=== PATIENT | male | born 1975 | race Caucasian/White ===

== ENCOUNTER 2018-05-12 08:28 | Outpatient (CLI) | payer MEDICAID ==
[2018-05-12 11:21] LABS: BUN - BLOOD UREA NITROGEN 18 mg/dL (6-20); CHOL/HDL RATIO 3.5 (<5.0); CHOLESTEROL 178 mg/dL; GFR - MDRD 83 (>89); GLUCOSE 98 mg/dL (70-100); HDL CHOLESTEROL 51 mg/dL; LDL CHOLESTEROL,CALCULATED 110 mg/dL; LDL/HDL RATIO 2.2 (<3.6); VLDL CHOLESTEROL 17 mg/dL
[2018-05-12 13:08] LABS: CALCIUM 9.3 mg/dL (8.5-10.3); CARBON DIOXIDE - CO2 25 mmol/L (21-32); CHLORIDE 104 mmol/L (101-111); SODIUM 136 mmol/L (135-145)
== END 2018-05-12 08:29 | disposition home or self-care (01) ==
LOC: LAB.F 08:28
PROVIDERS: ATTEND Internal Medicine
DX: Z00.00 Encounter for general adult medical examination without abnormal findings (principal); N13.9 Obstructive and reflux uropathy, unspecified
CPT/HCPCS: 36415; 80048; 80061; 83721; 84153

== ENCOUNTER 2018-05-18 20:38 | Emergency (ER) | payer MEDICAID ==
--- NOTE | 2018-05-18 21:31 | ED Physician Documentation ---
PD HPI ABD PAIN - Stated complaint Stated Complaint: ADB PX/FEVER - Chief complaint Chief Complaint: Abd Pain - History obtained from History obtained from: Patient - History of Present Illness Timing - onset: Last night Timing - details: Gradual onset, Intermittant, Waxing and waning Quality: Cramping, Pain Location: Periumbilical, LLQ Radiation: Other (no radiation) Improved by: Other (nothing) Worsened by: Other (no exacerbating factors) Associated symptoms: Fever (Tmax 102 (earlier today)), Diarrhea. No: Nausea, Vomiting, Dysuria Similar symptoms before: Has not had sx before Recently seen: Not recently seen Review of Systems Constitutional: reports: Fever. denies: Myalgias Cardiac: reports: Reviewed and negative Respiratory: reports: Reviewed and negative GI: reports: Abdominal Pain, Diarrhea. denies: Abdominal Swelling, Nausea, Vomiting : denies: Dysuria, Frequency Skin: reports: Reviewed and negative Musculoskeletal: reports: Reviewed and negative PD PAST MEDICAL HISTORY - Past Medical History Past Medical History: No - Past Surgical History Past Surgical History: No - Present Medications Home Medications: Ambulatory Orders Medication Instructions Recorded Confirmed Ciprofloxacin HCl [Cipro] 500 mg PO BID #14 tablet 05/19/18 Hydrocodone/Acetaminophen 1 - 2 each PO Q6H PRN #14 tablet 05/19/18 [Hydrocodon-Acetaminophen 5-325] Metronidazole [Flagyl] 500 mg PO TID #21 tablet 05/19/18 - Allergies Allergies/Adverse Reactions: Allergies Allergy/AdvReac Type Severity Reaction Status Date / Time No Known Drug Allergies Allergy Verified 05/18/18 20:42 - Social History Does the pt smoke?: No Smoking Status: Never smoker Does the pt drink ETOH?: Yes ETOH Use: Beer Substance Use and Type: Marijuana PD ED PE NORMAL - Vitals Vital signs reviewed: Yes - General General: Alert and oriented X 3, No acute distress, Well developed/nourished - HEENT HEENT: Moist mucous membranes - Neck Neck: Supple, no meningeal sign - Cardiac Cardiac: RRR, No murmur - Respiratory Respiratory: No respiratory distress, Clear bilaterally - Abdomen Abdomen: Soft, Non distended, Other (LLQ tenderness without rebound or guarding) - Back Back: No CVA TTP - Derm Derm: Normal color, Warm and dry, No rash - Extremities Extremities: No edema Results - Vitals Vitals: Vital Signs - 24 hr 03/10/19 03/10/19 03/11/19 20:42 23:22 01:47 Temperature 37.2 C Heart Rate 93 83 92 Respiratory 16 18 16 Rate Blood Pressure 146/88 H 151/89 H 139/99 H O2 Saturation 96 97 97 Oxygen O2 Source Room air - Labs Labs: Microbiology 05/18/18 23:40 Campylobacter Antigen Assay - Final Stool No growth Laboratory Tests 05/18/18 05/18/18 05/19/18 22:00 22:18 01:34 WBC 6.7 RBC 4.94 Hgb 16.0 Hct 45.9 MCV 92.9 MCH 32.3 H MCHC 34.8 RDW 12.5 Plt Count 161 MPV 7.3 L Neut # (Auto) 5.1 Lymph # (Auto) 0.9 L [place] # (Auto) 0.7 Eos # (Auto) 0.0 Baso # (Auto) 0.0 Absolute Nucleated RBC 0.00 Nucleated RBC % 0.0 Sodium 135 Potassium 3.6 Chloride 98 L Carbon Dioxide 24 Anion Gap 13.0 BUN 18 Creatinine 1.3 H Estimated GFR (MDRD) 61 L Glucose 109 H Calcium 9.2 Total Bilirubin 0.9 AST 20 ALT 18 Alkaline Phosphatase 47 Total Protein 7.2 Albumin 3.7 Globulin 3.5 Albumin/Globulin Ratio 1.1 Lipase 39 C. difficile Tox B Gene NEGATIVE - Rads (name of study) CT A/P Radiology: Prelim report reviewed, See rad report PD MEDICAL DECISION MAKING - ED course Complexity details: reviewed results, re-evaluated patient, considered differential, d/w patient Departure - Departure Disposition: 01 Home, Self Care Clinical Impression: Colitis Condition: Good Instructions: ED Gastroenteritis Non Infec Follow-Up: Mukund Mahan MD [Primary Care Provider] - (2-3 days) Prescriptions: Ciprofloxacin HCl [Cipro] 500 mg PO BID #14 tablet Hydrocodone/Acetaminophen [Hydrocodon-Acetaminophen 5-325] 1 - 2 each PO Q6H PRN #14 tablet PRN Reason: pain Metronidazole [Flagyl] 500 mg PO TID #21 tablet Discharge Date/Time: 05/19/18 02:00
[2018-05-18] MEDS ORDERED: SODIUM CHLORIDE 0.9% 1,000 ML IV STA (21:50)
[2018-05-18 22:22] LABS: BASOPHILS % (AUTO) 0.3 %; EOSINOPHILS % (AUTO) 0.1 %; LYMPHOCYTES # (AUTO) 0.9 10^3/uL (1.5-3.5); LYMPHOCYTES % (AUTO) 13.7 %; MEAN CORPUSCULAR HEMOGLOBIN 32.3 pg (27.0-31.0); MEAN CORPUSCULAR HGB CONC 34.8 g/dL (32.0-36.0); MEAN CORPUSCULAR VOLUME 92.9 fL (80.0-94.0); MEAN PLATELET VOLUME 7.3 fL (7.4-11.4); MONOCYTES # (AUTO) 0.7 10^3/uL (0.0-1.0); MONOCYTES % (AUTO) 9.8 %; NEUTROPHILS # (AUTO) 5.1 10^3/uL (1.5-6.6); NEUTROPHILS % (AUTO) 76.1 %; PLT - PLATELET COUNT 161 10^3/uL (130-450); RED BLOOD COUNT 4.94 10^6/uL (4.70-6.10); RED CELL DISTRIBUTION WIDTH 12.5 % (12.0-15.0); WHITE BLOOD COUNT 6.7 x10^3/uL (4.8-10.8)
[2018-05-18] MEDS ORDERED: IOPAMIDOL-300 100 ML VIAL ONE (22:25)
[2018-05-18 22:30] LABS: ALBUMIN 3.7 g/dL (3.2-5.5); ALBUMIN/GLOBULIN RATIO 1.1 (1.0-2.2); BILIRUBIN,TOTAL 0.9 mg/dL (0.2-1.0); CALCIUM 9.2 mg/dL (8.5-10.3); CREATININE 1.3 mg/dL (0.6-1.2); TOTAL PROTEIN 7.2 g/dL (6.7-8.2)
[2018-05-18] MEDS ORDERED: IOPAMIDOL-300 100 ML VIAL IVP ONE (23:23)
--- NOTE | 2018-05-18 23:32 | CT Report ---
Reason: LLQ pain, fever Procedure Date: 05/18/2018 Accession Number: [id number] / [id number] Procedure: CT - Abdomen/Pelvis W CPT Code: FULL RESULT: EXAM: CT ABDOMEN AND PELVIS EXAM DATE: 05/18/2018 11:22 PM. CLINICAL HISTORY: LLQ pain, fever. COMPARISONS: None. TECHNIQUE: Routine helical CT imaging was performed through the abdomen and pelvis. IV contrast: 100 ML ISOVUE 300. Enteric contrast: No. Reconstructions: Coronal and sagittal. In accordance with CT protocol optimization, one or more of the following dose reduction techniques were utilized for this exam: automated exposure control, adjustment of mA and/or KV based on patient size, or use of iterative reconstructive technique. FINDINGS: Lung Bases: Unremarkable. Liver: Normal. No masses. Gallbladder/Bile Ducts: Unremarkable. Spleen: Normal. Pancreas: Normal. Adrenal Glands: Normal. Kidneys: Normal. No masses or hydronephrosis. Peritoneal Cavity/Bowel: There is wall thickening of the transverse, descending, and sigmoid colon, compatible with colitis. No small bowel dilatation, free gas, or free fluid. No abdominal adenopathy. The appendix is well visualized and normal. Pelvic Organs: Normal. The bladder and visualized pelvic organs are within normal limits. Vasculature: No aneurysms or other significant abnormality. Specifically, the superior mesenteric and inferior mesenteric arteries are patent. Bones: No significant abnormality. Other: None. IMPRESSION: Contiguous long segment colonic wall thickening, involving the transverse, descending, and sigmoid colon, suggestive of colitis. Normal appendix. No small bowel obstruction or perforation. RADIA
[2018-05-19] MEDS ORDERED: MORPHINE 2 MG/ML CARPUJECT IVP STA (01:31)
[2018-05-19] MEDS ORDERED: CIPROFLOXACIN 250 MG TABLET PO STA (01:31)
[2018-05-19] MEDS ORDERED: HYDROcod/ACET 5/325 Prepack 4 PO STA (01:31)
[2018-05-19] MEDS ORDERED: metroNIDAZOLE 250 MG TABLET PO STA (01:32)
[2018-05-19 01:48] VITALS: BP 139/99
== END 2018-05-19 02:00 | disposition home or self-care (01) ==
LOC: ED 20:38
DX: K52.9 Noninfective gastroenteritis and colitis, unspecified (principal)
CPT/HCPCS: 36415; 74177; 80053; 83690; 85025; 87045; 87046; 87493; 96361; 96374; 99283; A9270; Q9967

== ENCOUNTER 2018-10-24 15:51 | Outpatient (CLI) | payer MEDICAID | END 2018-10-24 15:52 | disposition EMS.NT | LOC: EMS 15:51 | PROVIDERS: ATTEND Surgery | DX: Z03.89 Encounter for observation for other suspected diseases and conditions ruled out (principal) ==

== ENCOUNTER 2019-01-30 16:43 | Emergency (ER) | payer MEDICAID, OTHER ==
[2019-01-30 17:24] LABS: BASOPHILS % (AUTO) 0.2 %; EOSINOPHILS % (AUTO) 0.2 %; HGB - HEMOGLOBIN 16.9 g/dL (14.0-18.0); LYMPHOCYTES # (AUTO) 1.2 10^3/uL (1.5-3.5); LYMPHOCYTES % (AUTO) 14.5 %; MEAN CORPUSCULAR HEMOGLOBIN 30.3 pg (27.0-31.0); MEAN CORPUSCULAR HGB CONC 33.7 g/dL (32.0-36.0); MEAN CORPUSCULAR VOLUME 89.8 fL (80.0-94.0); MEAN PLATELET VOLUME 9.1 fL (7.4-11.4); MONOCYTES # (AUTO) 0.6 10^3/uL (0.0-1.0); MONOCYTES % (AUTO) 7.6 %; NEUTROPHILS # (AUTO) 6.4 10^3/uL (1.5-6.6); PLT - PLATELET COUNT 266 10^3/uL (130-450); RED BLOOD COUNT 5.58 10^6/uL (4.70-6.10); RED CELL DISTRIBUTION WIDTH 12.8 % (12.0-15.0); WHITE BLOOD COUNT 8.3 x10^3/uL (4.8-10.8)
[2019-01-30 17:33] LABS: ALBUMIN 4.7 g/dL (3.2-5.5); ALBUMIN/GLOBULIN RATIO 1.3 (1.0-2.2); BILIRUBIN,TOTAL 1.8 mg/dL (0.2-1.0); CALCIUM 8.9 mg/dL (8.5-10.3); TOTAL PROTEIN 8.2 g/dL (6.7-8.2)
--- NOTE | 2019-01-30 17:48 | XRAY Report ---
Reason: chest pain Procedure Date: 01/30/2019 Accession Number: [id number] / [id number] Procedure: XR - Chest 1 View X-Ray CPT Code: 54742 Final Report FULL RESULT: EXAM: CHEST RADIOGRAPHY EXAM DATE: 01/30/2019 05:17 PM. CLINICAL HISTORY: Chest pain. COMPARISON: None. TECHNIQUE: 1 view. FINDINGS: Lungs/Pleura: No focal opacities evident. No pleural effusion. No pneumothorax. Mediastinum: Within exam limitations, the cardiomediastinal contour is normal. Other: None. IMPRESSION: Normal single view chest. RADIA
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
[2019-01-30] MEDS ORDERED: ONDANSETRON ODT 4 MG TABLET TL STA (19:22)
[2019-01-30] MEDS ORDERED: FAMOTIDINE 20 MG/2 ML VIAL IVP STA (19:22)
[2019-01-30] MEDS ORDERED: MAG HYDROX/AL HYDROX/SIMETH 30 ML UDC PO STA (19:22)
[2019-01-30] MEDS ORDERED: FAMOTIDINE 20 MG TABLET PO STA (19:28)
[2019-01-30 20:37] VITALS: BP 137/93
== END 2019-01-30 20:46 | disposition home or self-care (01) ==
LOC: ED 16:43
DX: R07.89 Other chest pain (principal); R10.13 Epigastric pain; R11.2 Nausea with vomiting, unspecified
CPT/HCPCS: 36415; 71045; 80053; 83690; 84484; 85025; 93005; 99284; A9270; Q0162

== ENCOUNTER 2019-10-04 05:23 | Emergency (ER) | payer SELFPAY ==
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
[2019-10-04] MEDS ORDERED: MORPHINE 2 MG/ML CARPUJECT IM STA (06:03)
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
[2019-10-04 09:07] VITALS: BP 133/97
[2019-10-04] MEDS ORDERED: AMOX/CLAV 875 MG/125 MG TABLET PO STA (09:23)
[2019-10-04] MEDS ORDERED: oxyCODONE 5 MG TABLET PO STA (09:24)
== END 2019-10-04 10:43 | disposition home or self-care (01) ==
LOC: ED 05:23
DX: S02.842A Fracture of lateral orbital wall, left side, initial encounter for closed fracture (principal); S02.32XA Fracture of orbital floor, left side, initial encounter for closed fracture; S02.40FA Zygomatic fracture, left side, initial encounter for closed fracture; S02.40DA Maxillary fracture, left side, initial encounter for closed fracture; S06.0X1A Concussion with loss of consciousness of 30 minutes or less, initial encounter; S60.141A Contusion of right ring finger with damage to nail, initial encounter; S60.416A Abrasion of right little finger, initial encounter; S00.83XA Contusion of other part of head, initial encounter; S00.81XA Abrasion of other part of head, initial encounter; S50.812A Abrasion of left forearm, initial encounter; S80.02XA Contusion of left knee, initial encounter; S80.01XA Contusion of right knee, initial encounter; V18.0XXA Pedal cycle driver injured in noncollision transport accident in nontraffic accident, initial encounter; Y93.55 Activity, bike riding
CPT/HCPCS: 70450; 70486; 71046; 72125; 99284; A9270

== ENCOUNTER 2020-02-03 15:03 | Outpatient (CLI) | payer OTHER | END 2020-02-03 15:04 | disposition home or self-care (01) | LOC: COV 15:03 | PROVIDERS: ATTEND Family Medicine | DX: Z20.828 Contact with and (suspected) exposure to other viral communicable diseases (principal) ==

== ENCOUNTER 2020-11-21 08:00 | Outpatient (CLI) | payer BC, OTHER ==
[2020-11-24 11:41] LABS: NIL 0.03 IU/mL; TB1-NIL 0.03 IU/mL; TB2-NIL 0.06 IU/mL
== END 2020-11-21 23:59 | disposition home or self-care (01) ==
LOC: LAB.S 08:00
PROVIDERS: ATTEND Physician Assistant Medical
DX: Z11.1 Encounter for screening for respiratory tuberculosis (principal)
CPT/HCPCS: 86480

== ENCOUNTER 2020-12-06 08:00 | Outpatient (CLI) | payer BC ==
[2020-12-06 14:52] LABS: BASOPHILS # (AUTO) 0.1 10^3/uL (0.0-0.1); BASOPHILS % (AUTO) 0.8 %; EOSINOPHILS # (AUTO) 0.2 10^3/uL (0.0-0.7); EOSINOPHILS % (AUTO) 2.8 %; HCT - HEMATOCRIT 47.3 % (42.0-52.0); HGB - HEMOGLOBIN 15.9 g/dL (14.0-18.0); LYMPHOCYTES # (AUTO) 2.4 10^3/uL (1.5-3.5); LYMPHOCYTES % (AUTO) 39.1 %; MEAN CORPUSCULAR HEMOGLOBIN 31.7 pg (27.0-31.0); MEAN CORPUSCULAR HGB CONC 33.6 g/dL (32.0-36.0); MEAN CORPUSCULAR VOLUME 94.2 fL (80.0-94.0); MEAN PLATELET VOLUME 9.4 fL (7.4-11.4); MONOCYTES # (AUTO) 0.5 10^3/uL (0.0-1.0); MONOCYTES % (AUTO) 8.3 %; NEUTROPHILS # (AUTO) 2.9 10^3/uL (1.5-6.6); NEUTROPHILS % (AUTO) 48.5 %; PLT - PLATELET COUNT 230 10^3/uL (130-450); RED BLOOD COUNT 5.02 10^6/uL (4.70-6.10); RED CELL DISTRIBUTION WIDTH 12.4 % (12.0-15.0); WHITE BLOOD COUNT 6.1 x10^3/uL (4.8-10.8)
[2020-12-06 15:19] LABS: ALBUMIN/GLOBULIN RATIO 1.2 (1.0-2.2); BILIRUBIN,TOTAL 0.6 mg/dL (0.2-1.0); CALCIUM 8.9 mg/dL (8.5-10.3); POTASSIUM 3.9 mmol/L (3.5-5.0); TOTAL PROTEIN 7.3 g/dL (6.7-8.2)
== END 2020-12-06 23:59 | disposition home or self-care (01) ==
LOC: LAB.S 08:00
PROVIDERS: ATTEND Nurse Practitioner
DX: R42 Dizziness and giddiness (principal)
CPT/HCPCS: 36415; 80053; 85025

== ENCOUNTER 2022-06-11 07:04 | Outpatient (CLI) | payer MEDICAID ==
[2022-06-11 14:39] LABS: BASOPHILS % (AUTO) 0.6 %; EOSINOPHILS # (AUTO) 0.2 10^3/uL (0.0-0.7); EOSINOPHILS % (AUTO) 2.5 %; HCT - HEMATOCRIT 50.9 % (42.0-52.0); HGB - HEMOGLOBIN 16.8 g/dL (14.0-18.0); LYMPHOCYTES # (AUTO) 2.4 10^3/uL (1.5-3.5); LYMPHOCYTES % (AUTO) 37.8 %; MEAN CORPUSCULAR HEMOGLOBIN 31.2 pg (27.0-31.0); MEAN CORPUSCULAR VOLUME 94.4 fL (80.0-94.0); MEAN PLATELET VOLUME 9.1 fL (7.4-11.4); MONOCYTES # (AUTO) 0.7 10^3/uL (0.0-1.0); MONOCYTES % (AUTO) 10.5 %; NEUTROPHILS # (AUTO) 3.1 10^3/uL (1.5-6.6); NEUTROPHILS % (AUTO) 48.4 %; PLT - PLATELET COUNT 229 10^3/uL (130-450); RED BLOOD COUNT 5.39 10^6/uL (4.70-6.10); WHITE BLOOD COUNT 6.4 x10^3/uL (4.8-10.8)
[2022-06-11 15:40] LABS: ALBUMIN 3.8 g/dL (3.2-5.5); ALBUMIN/GLOBULIN RATIO 1.1 (1.0-2.2); ALKALINE PHOSPHATASE 48 IU/L (42-121); ALT ALANINE AMINOTRANSFERASE 31 IU/L (10-60); AST ASPARTATE AMINOTRANSFERASE 35 IU/L (10-42); BILIRUBIN,TOTAL 0.9 mg/dL (0.2-1.0); BUN - BLOOD UREA NITROGEN 14 mg/dL (6-20); CALCIUM 8.8 mg/dL (8.5-10.3); CARBON DIOXIDE - CO2 29 mmol/L (21-32); CHLORIDE 105 mmol/L (101-111); CHOL/HDL RATIO 3.6 (<5.0); CHOLESTEROL 200 mg/dL; CREATININE 0.9 mg/dL (0.6-1.2); GFR - MDRD 92 (>89); GLUCOSE 103 mg/dL (70-100); HDL CHOLESTEROL 56 mg/dL; LDL CHOLESTEROL,CALCULATED 128 mg/dL; LDL/HDL RATIO 2.3 (<3.6); SODIUM 136 mmol/L (135-145); TOTAL PROTEIN 7.3 g/dL (6.7-8.2); TRIGLYCERIDES 78 mg/dL; URIC ACID 6.7 mg/dL (2.6-7.2); VLDL CHOLESTEROL 16 mg/dL
[2022-06-11 15:42] LABS: THYROID STIMULATING HORMONE 3.4 uIU/mL (0.34-5.60)
== END 2022-06-11 07:05 | disposition home or self-care (01) ==
LOC: LAB.S 07:04
PROVIDERS: ATTEND Internal Medicine
DX: I10 Essential (primary) hypertension (principal); R61 Generalized hyperhidrosis
CPT/HCPCS: 36415; 80050; 80061; 81001; 83721; 84550; 87086

== ENCOUNTER 2022-06-23 19:01 | Emergency (ER) | payer MEDICAID ==
[2022-06-23 19:23] VITALS: BP 176/108
--- NOTE | 2022-06-23 19:31 | ED Physician Documentation ---
History of Present Illness - Stated complaint Stated Complaint: EXPOSURE TO STREP - Chief complaint Chief Complaint: General - History obtained from History obtained from: Patient (His tested positive for strep today. He has no symptoms but was encouraged by his to be seen by physician.) PD PAST MEDICAL HISTORY - Past Medical History Cardiovascular: Other - Past Surgical History Past Surgical History: No - Present Medications Home Medications: Ambulatory Orders Medication Instructions Recorded Confirmed Ciprofloxacin HCl [Cipro] 500 mg PO BID #14 tablet 05/19/18 Hydrocodone/Acetaminophen 1 - 2 each PO Q6H PRN #14 tablet 05/19/18 [Hydrocodon-Acetaminophen 5-325] metroNIDAZOLE [Flagyl] 500 mg PO TID #21 tablet 05/19/18 Famotidine [Acid Controller] 20 mg PO DAILY #14 tablet 01/30/19 Ondansetron Odt [Zofran] 4 mg TL Q6H PRN #10 tablet 01/30/19 Amox/Clav 875/125 [Augmentin] 1 each PO Q12H #13 tablet 10/04/19 oxyCODONE [Roxicodone] 5 - 10 mg PO Q6H PRN #20 tablet 10/04/19 - Allergies Allergies/Adverse Reactions: Allergies Allergy/AdvReac Type Severity Reaction Status Date / Time No Known Drug Allergies Allergy Verified 06/23/22 19:23 - Social History Does the pt smoke?: No Smoking Status: Never smoker Does the pt drink ETOH?: Yes Does the pt have substance abuse?: No - Immunizations Immunizations are current?: Yes - POLST Patient has POLST: No PD ED PE NORMAL - Vitals Vital signs reviewed: Yes - General General: Alert and oriented X 3, No acute distress - HEENT HEENT: Pharynx benign - Cardiac Cardiac: RRR, No murmur Results - Vitals Vitals: Vital Signs - 24 hr 06/23/22 19:20 Temperature 36.7 C Heart Rate 97 Respiratory 18 Rate Blood Pressure 176/108 H O2 Saturation 95 Oxygen O2 Source Room air Departure - Departure Disposition: 01 Home, Self Care Clinical Impression: Streptococcus exposure Condition: Good Record reviewed to determine appropriate education?: Yes Comments: Return if you develop fever, sore throat, or other symptoms of acute illness. Your blood pressure was elevated today on check into the emergency department. This does not mean that you have hypertension, it is a common phenomenon to come to the emergency department and have elevated blood pressure. I recommend that you see your primary care physician within the week to have it rechecked when you are feeling better.
== END 2022-06-23 19:39 | disposition home or self-care (01) ==
LOC: ED 19:01
DX: Z20.89 Contact with and (suspected) exposure to other communicable diseases (principal)
CPT/HCPCS: 99281; 99282

== ENCOUNTER 2023-08-06 21:08 | Emergency (ER) | payer MEDICAID, OTHER ==
--- NOTE | 2023-08-06 23:04 | ED Physician Documentation ---
PD HPI HEENT - Stated complaint Stated Complaint: TOOTH PX - Chief complaint Chief Complaint: Heent - History obtained from History obtained from: Patient - Additional information Additional information: HPI from patient. Patient c/o dental pain x few days. The pain is left upper teeth but not focal to any one tooth. The pain is constant and steadily worsening since onset. There was no inciting event. Denies fever. Pain is exacerbated with chewing. No ameliorating factors. PD PAST MEDICAL HISTORY - Past Medical History Cardiovascular: Other - Past Surgical History Past Surgical History: No - Present Medications Home Medications: Ambulatory Orders Medication Instructions Recorded Confirmed Ciprofloxacin HCl [Cipro] 500 mg PO BID #14 tablet 05/19/18 Hydrocodone/Acetaminophen 1 - 2 each PO Q6H PRN #14 tablet 05/19/18 [Hydrocodon-Acetaminophen 5-325] metroNIDAZOLE [Flagyl] 500 mg PO TID #21 tablet 05/19/18 Famotidine [Acid Controller] 20 mg PO DAILY #14 tablet 01/30/19 Ondansetron Odt [Zofran] 4 mg TL Q6H PRN #10 tablet 01/30/19 Amox/Clav 875/125 [Augmentin] 1 each PO Q12H #13 tablet 10/04/19 oxyCODONE [Roxicodone] 5 - 10 mg PO Q6H PRN #20 tablet 10/04/19 Amox/Clav 875/125 [Augmentin 1 tablet PO Q12H 10 Days #14 tablet 08/06/23 875/125 Tab] Oxycodone HCl/Acetaminophen 1 - 2 each PO Q6H PRN #14 tablet 08/06/23 [Percocet 5-325 mg Tablet] - Allergies Allergies/Adverse Reactions: Allergies Allergy/AdvReac Type Severity Reaction Status Date / Time No Known Drug Allergies Allergy Verified 08/06/23 21:22 - Social History Does the pt smoke?: No Smoking Status: Never smoker Does the pt drink ETOH?: Yes Does the pt have substance abuse?: No - Immunizations Immunizations are current?: Yes - POLST Patient has POLST: No PD ED PE NORMAL - Vitals Vital signs reviewed: Yes - General General: Alert and oriented X 3, No acute distress, Well developed/nourished - HEENT HEENT: Moist mucous membranes PD ED PE EXPANDED - HEENT HEENT: Other (extensive generalized dental decay and attrition. Left maxillary gingiva (buccal aspect) has mild swelling, erythema but no fluctuance nor visible focus to suggest abscess. symmetric facies) Results - Vitals Vitals: Vital Signs - 24 hr 08/06/23 08/06/23 21:18 23:54 Temperature 36.5 C Heart Rate 54 L 58 L Respiratory 16 16 Rate Blood Pressure 142/99 H 139/100 H O2 Saturation 98 99 Oxygen O2 Source Room air PD Medical Decision Making - ED course Complexity details: considered differential, d/w patient ED course: Given augmentin 875mg PO in ED as well as 5mg PO oxycodone, provided rx for both of these medications. Return precautions reviewed, advised to continue to pursue follow up with dentist Departure - Departure Disposition: 01 Home, Self Care Clinical Impression: Pain, dental Condition: Good Instructions: ED Tooth Pain Prescriptions: Amox/Clav 875/125 [Augmentin 875/125 Tab] 1 tablet PO Q12H 10 Days #14 tablet Oxycodone HCl/Acetaminophen [Percocet 5-325 mg Tablet] 1 - 2 each PO Q6H PRN #14 tablet PRN Reason: pain Comments: Although there is no overt evidence of infection on physical exam, I am prescribing an antibiotic (Augmentin) to cover possible early infection as the source of your dental pain. I have also electronically submitted a prescription for this antibiotic (1-week course) to the [facility] in [place]. You were also given the first dose of the Augmentin in the ER as well as a dose of oxycodone. I have also electronically submitted a prescription for Percocet (narcotic/opiate pain medication) to the [facility] in [place]. It is imperative that you continue to pursue immediate follow-up with dentistry as soon as can be arranged. I am prescribing a short course of narcotic pain medication for you. These are potentially dangerous and addictive medications that should be used carefully. These medications may constipate you. Take an [id number] stool softener (docusate) twice daily with plenty of water while taking these medications. If you go 24 hours without a bowel movement, take [id number] miralax, per package instructions. Do not drink or drive while taking these medications. If you received narcotic or sedating medications while in the emergency department, do not drive for 24 hours. Store this medication in a safe, secure place and out of reach of children. It is a violation of federal law to give or sell this medication to another person or to use in a manner other than prescribed. The ED will not refill narcotic prescriptions, including prescriptions lost or stolen. To dispose of unwanted medications: 1. [facility] [address] in [place] has a medication drop box. They accept prescription medications (in pill form) Saturday through Saturday 9:00 a.m. to 5:00 p.m. 2. [facility] accepts prescription medications (in pill form only) for disposal year round. Call for more information. 3. Contact the [facility] for the next [facility] sponsored prescription drug collection event. , [phone], or [phone]; Discharge Date/Time: 08/06/23 23:54
[2023-08-06] MEDS: oxyCODONE 5 MG TABLET PO STA (23:48)
[2023-08-06] MEDS: AMOX/CLAV 875 MG/125 MG TABLET PO STA (23:48)
[2023-08-07 00:05] VITALS: BP 139/100; O2SAT 99
== END 2023-08-06 23:54 | disposition home or self-care (01) ==
LOC: ED 21:08
DX: K08.89 Other specified disorders of teeth and supporting structures (principal)
CPT/HCPCS: 99283; A9270